=== PATIENT | male | born 1975 | race Caucasian/White ===

== ENCOUNTER 2019-04-19 07:23 | Day surgery (SDC) | payer OTHER, MEDICAID ==
[~2019-04-19] VITALS: Ht 182.9 cm; Wt 122.5 kg
[~2019-04-19 07:23] MED LIST: CEFAZOLIN 2 GM IVPB PREMIX 50 ML IV ONE
[2019-04-19 08:53] LABS: INR 0.9 (0.80-1.20); PROTHROMBIN TIME 9.2 SECS (9.5-12.5)
[2019-04-19] MEDS ORDERED: SEVOFLURANE 15 MIN GAS INH ONE (09:17)
[2019-04-19] MEDS ORDERED: ETOMIDATE 20 MG/ 10 ML VIAL (AMIDATE) IVP ONE (09:17)
[2019-04-19] MEDS ORDERED: SUCCINYLCHOLINE CHLORIDE 20 MG/ML(QUELICIN) IVP ONE (09:17)
[2019-04-19] MEDS ORDERED: fentaNYL CITRATE/PF 100 MCG/2 ML AMP IVP ONE (09:17)
[2019-04-19] MEDS ORDERED: BUPIVACAINE LIPOSOME/PF 266 MG/20 ML VIAL INFIL ONE ×2 (09:17→09:40)
[2019-04-19] MEDS ORDERED: METOCLOPRAMIDE HCL 10 MG/2 ML VIAL IVP ONE (09:17)
[2019-04-19] MEDS ORDERED: ONDANSETRON HCL 4 MG/2 ML VIAL IVP ONE (09:17)
[2019-04-19] MEDS ORDERED: NS IRRIG SOLN 1000 ML IR ONE (09:17)
[2019-04-19] MEDS ORDERED: LIDOCAINE VISCOUS 2%, 15 ML UDC PO ONE (09:17)
[2019-04-19] MEDS ORDERED: GLYCOPYRROLATE 0.2 MG/ML VIAL IJ ONE (09:17)
[2019-04-19] MEDS ORDERED: MIDAZOLAM HCL 5 MG/5 ML VIAL IVP ONE (09:17)
[2019-04-19] MEDS ORDERED: ONDANSETRON HCL 4 MG/2 ML VIAL IVP PRN (10:30)
[2019-04-19] MEDS ORDERED: HYDROmorphone 1 MG INJ. 1 MG/ML AMPUL IVP PRN ×2 (10:30)
[2019-04-19] MEDS ORDERED: hydrALAZINE HCL 20 MG/ML VIAL IVP PRN (10:30)
[2019-04-19] MEDS ORDERED: METOCLOPRAMIDE HCL 10 MG/2 ML VIAL IVP PRN (10:30)
[2019-04-19] MEDS ORDERED: HYDROcodone/ACETAMIN 5-325 MG TAB (NORCO/ VICODIN) PO PRN ×2 (10:30)
[2019-04-19] MEDS: hydrALAZINE HCL 20 MG/ML VIAL ONE ×4 (11:02→11:20)
[2019-04-19 12:47] VITALS: BP_SYST 177
== END 2019-04-19 12:45 | disposition home or self-care (01) ==
LOC: SMU 07:23 → SDS 07:23
PROVIDERS: ATTEND Surgery
DX: K64.4 Residual hemorrhoidal skin tags (principal); I12.0 Hypertensive chronic kidney disease with stage 5 chronic kidney disease or end stage renal disease; E11.22 Type 2 diabetes mellitus with diabetic chronic kidney disease; N18.6 End stage renal disease; Z98.890 Other specified postprocedural states; Z79.899 Other long term (current) drug therapy; E66.01 Morbid (severe) obesity due to excess calories; Z99.2 Dependence on renal dialysis
CPT/HCPCS: 36415; 46260; 82962; 84132; 85610; 85730; 88304; 93005; C9290; J0330; J0360; J0690; J2001; J2250; J2405; J2765; J3010; J3490 ×2; J7030

== ENCOUNTER 2022-06-17 05:45 | Day surgery (SDC) | payer OTHER, MEDICAID ==
[~2022-06-17] VITALS: Ht 180.3 cm; Wt 104.0 kg
[2022-06-17] MEDS ORDERED: MIDAZOLAM HCL 5 MG/5 ML VIAL ONE (07:08)
[2022-06-17] MEDS ORDERED: MEPERIDINE 50 MG/ML VIAL ONE (07:09)
[2022-06-17] MEDS ORDERED: fentaNYL CITRATE/PF 100 MCG/2 ML AMP ONE (07:11)
[2022-06-17] MEDS ORDERED: SIMETHICONE 40 MG/0.6 ML ML ONE (08:24)
[2022-06-17 08:45] VITALS: BP_SYST 172
== END 2022-06-17 09:45 | disposition home or self-care (01) ==
LOC: SMU 05:45 → SDS 05:45
PROVIDERS: ATTEND Internal Medicine Gastroenterology
DX: K52.9 Noninfective gastroenteritis and colitis, unspecified (principal); K64.9 Unspecified hemorrhoids; I10 Essential (primary) hypertension; E11.9 Type 2 diabetes mellitus without complications; E78.5 Hyperlipidemia, unspecified; Z79.899 Other long term (current) drug therapy; Z20.822 Contact with and (suspected) exposure to COVID-19; Z98.84 Bariatric surgery status
CPT/HCPCS: 45380; 87426; 82962; 36415; 88305; 99152; 99153; G0378; J2250; J3010; J2175

== ENCOUNTER 2022-09-25 06:12 | Day surgery (SDC) | payer OTHER, MEDICAID ==
[~2022-09-25] VITALS: Ht 180.3 cm; Wt 93.0 kg
[2022-09-25] MEDS ORDERED: fentaNYL CITRATE/PF 100 MCG/2 ML AMP ONE (06:46)
[2022-09-25 06:57] VITALS: O2SAT 97
[2022-09-25] MEDS: MIDAZOLAM HCL 5 MG/5 ML VIAL ONE ×2 (08:09→08:12)
[2022-09-25 14:42] VITALS: BP_SYST 162; PULSE 67; RESP 16
== END 2022-09-25 09:43 | disposition home or self-care (01) ==
LOC: SDS 06:12 → SMU 06:13 → SDS 09:43
PROVIDERS: ATTEND Internal Medicine Gastroenterology
DX: R10.13 Epigastric pain (principal); K29.50 Unspecified chronic gastritis without bleeding; K52.9 Noninfective gastroenteritis and colitis, unspecified; Z98.84 Bariatric surgery status; Z79.899 Other long term (current) drug therapy
CPT/HCPCS: 43239; 88305; 88312; 88313; G0378; J2250; J3010